=== PATIENT | male | born 2000 | race Caucasian/White ===

== ENCOUNTER 2022-11-11 15:03 | Emergency (ER) | payer SELFPAY ==
[2022-11-11 15:09] VITALS: BP 125/83; PULSE 68; RESP 18; TEMP 36.3; O2SAT 98; BMI 17.0
--- NOTE | 2022-11-11 15:25 | ED_ITS ---
HPI - Wound/Laceration General Time Seen by Provider: 15:25 Date Seen: 11/11/22 Chief Complaint: Laceration/Wound Stated Complaint: R leg lac Time Seen by Provider: 11/11/22 15:15 Source: patient, family (Grandma is here with him) and RN notes reviewed Mode of arrival: ambulatory Limitations: no limitations History of Present Illness HPI narrative: Patient was climbing a fence yesterday and cut his leg on it. He did clean it out with alcohol and then has been using bacitracin. He continues to clean the wound with alcohol. It is continuing to bleed some. He is unsure when his last tetanus was, nursing staff did look it up and it was 07/26/2013. We will update tetanus today. Related Data Previous Rx's Medication Instructions Recorded cephalexin 500 mg tablet 500 mg PO TID #21 tabs 11/11/22 Allergies Allergy/AdvReac Type Severity Reaction Status Date / Time No Known Drug Allergies Allergy Verified 11/11/22 15:11 Review of Systems Narrative: As per HPI Exam Const: Vital Signs, click to edit/add: Vital Signs - 24 hr 11/11/22 15:09 Temperature 97.4 F L Pulse Rate [Left P ulse Oximeter] 68 Respiratory Rate 18 Blood Pressure [Le ft Upper Arm] 125/83 Pulse Oximetry 98 Oxygen Delivery Me thod Room Air Patient is ambulatory into the ED. Bandage removed from mid right lower extremity. It reveals a center small skin defect which does go into the subcutaneous tissue, this is under 1 cm, some serous drainage but no purulent discharge. There is no surrounding erythema. He has some generalized swelling around this area but no noted bruising. No evidence of any erythema. Calf is nontender, has normal distal sensation the swelling does not extend distally into the leg. Documenting provider has reviewed patient's vital signs: yes Course Course Hospital Course: Reviewed tetanus should be updated. Unfortunately since this wound happened yesterday it is too late to do any repair. This is going to have to heal by secondary intention. Recommended that he stay off this leg for 2-3 days and let the swelling subside. Will recommend elevation and ice. Continue bandage dressing changes with use of bacitracin. Will send with an antibiotic to start if this wound is looking worse, would recommend recheck if there is concerns or if they do start the antibiotic so someone can follow. Vital Signs Vital signs: Initial Vital Signs Temperature 97.4 F L 11/11/22 15:09 Temperature Source Temporal Artery Scan 11/11/22 15:09 Pulse Rate 68 11/11/22 15:09 Pulse Rhythm Regular 11/11/22 15:09 Pulse Strength 3+ Normal 11/11/22 15:09 Respiratory Rate 18 11/11/22 15:09 Blood Pressure 125/83 11/11/22 15:09 Blood Pressure Mean 97 11/11/22 15:09 Blood Pressure Position Sitting 11/11/22 15:09 Pulse Oximetry 98 11/11/22 15:09 Oxygen Delivery Method Room Air 11/11/22 15:09 Vital Signs Temperature 97.4 F L 11/11/22 15:09 Pulse Rate 68 11/11/22 15:09 Respiratory Rate 18 11/11/22 15:09 Blood Pressure 125/83 11/11/22 15:09 Pulse Oximetry 98 11/11/22 15:09 Oxygen Delivery Method Room Air 11/11/22 15:09 Temperature 97.4 F L 11/11/22 15:09 Pulse Rate 68 11/11/22 15:09 Respiratory Rate 18 11/11/22 15:09 Blood Pressure 125/83 11/11/22 15:09 Pulse Oximetry 98 11/11/22 15:09 Oxygen Delivery Method Room Air 11/11/22 15:09 Critical Care Time Critical Care Time Critical Care Time: No Discharge Plan Discharge Clinical Impression: Laceration Condition: Stable Instructions: Laceration Without Closure (ED) Additional Instructions: This wound may take 1-2 weeks to heal. Continue to watch for infection which would include increasing redness, swelling, purulent discharge and possibly associated fever. Start antibiotic prescription should you become concerned of infection. Do recommend being seen in clinic if you to start the antibiotics so that there is somebody following the wound and giving you further instructions. I would like you to rest this leg for the next couple of days to help diminish swelling, ice and elevate as much as possible the next 2-3 days. Use bacitracin with dressing changes. The drainage from the wound will start to slow down. B eing less active and elevating the leg will help minimize drainage as well. Prescriptions: New cephalexin 500 mg tablet 500 mg PO TID Qty: 21 0RF Stand Alone Forms: [facility] Info Instructions
[2022-11-11] MEDS: TETANUS/DIPHTH/PERTUSSIS 0.5 ML SYRINGE IM (15:35)
--- NOTE | 2022-11-11 15:46 | ED.NURSE ---
bacitracin and band aid applied to R kitchen
== END 2022-11-11 15:45 | disposition home or self-care (01) ==
PROVIDERS: Emergency Provider Family Medicine
DX: S81.811A Laceration without foreign body, right lower leg, initial encounter (principal); W26.9XXA Contact with unspecified sharp object(s), initial encounter; Y93.39 Activity, other involving climbing, rappelling and jumping off
CPT/HCPCS: 90471; 90715; 99282